=== PATIENT | female | born 1970 | race Caucasian/White ===

== ENCOUNTER 2020-08-21 18:34 | Emergency (ER) | payer SELFPAY ==
[~2020-08-21] VITALS: Ht 167.6 cm; Wt 69.5 kg
--- NOTE | 2020-08-21 19:25 | PHYS DOC ---
Past History Past Medical History: Anxiety, Bipolar, Bronchitis, Depression, Fibromyalgia, Hypertension, Seizure, Other Additional Past Medical Histor: Back issues (ALICE HILLMAN APRN) Past Surgical History: No Surgical History (ALICE HILLMAN APRN) Alcohol Use: None (ALICE HILLMAN APRN) Adult General Chief Complaint Chief Complaint: COUGH HPI HPI Patient is a 50-year-old female patient with history of bronchitis, current sm oker, hypertension, depression, anxiety, who presents to the ED today complaining of cough, bilateral ear pain, sore throat, symptoms have been going on since yesterday. Patient states the symptoms are similar to her chronic bronchitis but this time she feels it did not go away as quickly as. Denies any fever. She is requesting COVID-19 testing. (ALICE HILLMAN APRN) Review of Systems Review of Systems Constitutional: Denies fever or chills [] Eyes: Denies change in visual acuity, redness, or eye pain [] HENT: Reports bilateral ear pain, raw sensation in the throat. Denies nasal congestion Respiratory: Reports cough, denies shortness of breath [] Cardiovascular: No additional information not addressed in HPI [] GI: Denies abdominal pain, nausea, vomiting, bloody stools or diarrhea [] : Denies dysuria or hematuria [] Musculoskeletal: Denies back pain or joint pain [] Integument: Denies rash or skin lesions [] Neurologic: Denies headache, focal weakness or sensory changes [] All other systems were reviewed and found to be within normal limits, except as documented in this note. (ALICE HILLMAN APRN) Physical Exam Physical Exam Constitutional: Well developed, well nourished, no acute distress, non-toxic appearance. [] HENT: Normocephalic, atraumatic, bilateral external ears normal, oropharynx m oist, no oral exudates, nose normal. Bilateral ear canals with small amount of cerumen Eyes: PERRLA, EOMI, conjunctiva normal, no discharge. [] Neck: Normal range of motion, no tenderness, supple, no stridor. [] Cardiovascular:Heart rate regular rhythm, no murmur [] Lungs & Thorax: Bilateral breath sounds clear to auscultation [] Abdomen: Bowel sounds normal, soft, no tenderness, no masses, no pulsatile masses. [] Skin: Warm, dry, no erythema, no rash. [] Back: No tenderness, no CVA tenderness. [] Extremities: No tenderness, no cyanosis, no clubbing, ROM intact, no edema. [] Neurologic: Alert and oriented X 3, normal motor function, normal sensory function, no focal deficits noted. [] Psychologic: Affect normal, judgement normal, mood normal. [] (ALICE HILLMAN APRN) Current Patient Data Vital Signs Vital Signs Date Time Temp Pulse Resp B/P (MAP) Pulse Ox O2 Delivery O2 Flow Rate FiO2 08/21/20 19:07 98.5 75 16 149/101 (117) 97 Room Air (ALICE HILLMAN APRN) EKG EKG [] (ALICE HILLMAN APRN) Radiology/Procedures Radiology/Procedures []PROCEDURE: CHEST AP ONLY Exam: Chest one view INDICATION: Cough TECHNIQUE: Frontal view of the chest Comparisons: None FINDINGS: The cardiomediastinal silhouette and pulmonary vessels are within normal limits. The lung and pleural spaces are clear. IMPRESSION: No acute cardiopulmonary process. Electronically signed by: Tom Robbins MD (08/21/2020 8:59 PM) [facility] DICTATED AND SIGNED BY: TOM ROBBINS MD DATE: 08/21/202058 CC: PARVIZ ACUNA DO; JOSE TOM; ALICE HILLMAN APRN ~ (ALICE HILLMAN APRN) Heart Score Risk Factors: Risk Factors: DM, Current or recent (<one month) smoker, HTN, HLP, family history of CAD, obesity. Risk Scores: Risk Factors: DM, Current or recent (<one month) smoker, HTN, HLP, family history of CAD, obesity. (ALICE HILLMAN APRN) Course & Med Decision Making Course & Med Decision Making Pertinent Labs and Imaging studies reviewed. (See chart for details) This is a 50-year-old female patient with history of bronchitis current smoker presented to the ED today with multiple complaints including cough, bilateral ear pain, throat sensation in the throat, symptoms since yesterday. Also requesting COVID-19 testing Patient is a current smoker, recommended smoking cessation. O2 sats 97% to 98% on room air. Patient was discharged to home with albuterol inhaler, prednisone and encouraged to follow-up with a primary care doctor. Recommended self quarantine until she gets results for her Covid test (ALICE HILLMAN APRN) Dragon Disclaimer Dragon Disclaimer This electronic medical record was generated, in whole or in part, using a voice recognition dictation system. (ALICE HILLMAN APRN) Attending Co-Sign The patient was seen and interviewed as well as examined at the bedside. The chart was reviewed. The case was discussed. Agree with the plan of care. (PARVIZ ACUNA DO) Departure Departure: Impression: Primary Impression: Person under investigation for COVID-19 Additional Impressions: Smoking addiction Impacted cerumen of both ears Bronchitis Disposition: 01 DC HOME SELF CARE/HOMELESS Condition: STABLE Referrals: JOSE TOM (PCP) Follow-up in 1 to 2 weeks Patient Instructions: Acute Bronchitis, Smoking Cessation Additional Instructions: You were evaluated in the emergency room, you were tested for COVID-19, we will call you as soon as the results are available. In the meantime quarantine yourself. Consider smoking cessation. Maintain good antigen, push fluids. Take the prescribed medications as ordered. Scripts Prednisone (PREDNISONE) 50 Mg Tablet 1 TAB PO DAILY, #5 TAB Prov: ALICE HILLMAN APRN 08/21/20 Albuterol Sulfate (PROAIR HFA INHALER) 8.5 Gm Hfa.aer.ad 2 PUFF IH PRN Q4-6HRS PRN for wheezing for 21 Days, #1 INHALER 0 Refills Prov: ALICE HILLMAN APRN 08/21/20 Problem Qualifiers ALICE HILLMAN APRN Aug 21, 2020 19:25 PARVIZ ACUNA DO Aug 22, 2020 01:08
[2020-08-21 20:32] VITALS: BP 149/90
--- NOTE | 2020-08-21 21:02 | RAD ---
Exam: Chest one view INDICATION: Cough TECHNIQUE: Frontal view of the chest Comparisons: None FINDINGS: The cardiomediastinal silhouette and pulmonary vessels are within normal limits. The lung and pleural spaces are clear. IMPRESSION: No acute cardiopulmonary process. Electronically signed by: Tom Bauer MD (08/21/2020 8:59 PM) [facility]
[2020-08-21] MEDS ORDERED: PRED50TA PO (21:08)
[2020-08-21] MEDS ORDERED: ALBU2.5V8 IH (21:08)
--- NOTE | 2020-08-24 12:53 | NUR ---
IP: attempt to notify patient of COVIID result, unable to leave callback message. Will send letter.
== END 2020-08-21 21:16 | disposition home or self-care (01) ==
LOC: ER 18:34
DX: H61.23 Impacted cerumen, bilateral (principal); Z20.828 Contact with and (suspected) exposure to other viral communicable diseases; J40 Bronchitis, not specified as acute or chronic; R05 Cough; J02.9 Acute pharyngitis, unspecified; F41.9 Anxiety disorder, unspecified; F32.9 Major depressive disorder, single episode, unspecified; M79.7 Fibromyalgia; I10 Essential (primary) hypertension
CPT/HCPCS: 71045; 99284; C9803; U0003

== ENCOUNTER 2020-08-27 03:59 | Emergency (ER) | payer SELFPAY ==
[~2020-08-27] VITALS: Ht 167.6 cm; Wt 69.5 kg
[~2020-08-27 03:59] MED LIST: ALBU2.5V8 IH; PRED50TA PO
[2020-08-27] MEDS ORDERED: LISINOPRIL 10 MG TABLET PO ONE (04:30)
[2020-08-27] MEDS ORDERED: cloNIDine HCL 0.1 MG TABLET PO ONE (04:30)
--- NOTE | 2020-08-27 04:36 | PHYS DOC ---
Past History Past Medical History: Anxiety, Bipolar, Bronchitis, Depression, Fibromyalgia, Hypertension, Seizure, Other Additional Past Medical Histor: Back issues Past Surgical History: No Surgical History Alcohol Use: None General Adult EDM: Chief Complaint: HEADACHE HPI: HPI: 50-year-old female presents with headache and elevated blood pressure. The patient ran out of her lisinopril 40 mg prescription for her hypertension 4 days ago. She just transferred here from another place. Prescription prescription today but she was unable to pick it up. She has a generalized pressure s ensation headache since her blood pressure is elevated she just was not doing. She came to the emergency room. She has had hypertension for several years. She has a fairly history of strokes likely from hypertension, but no personal history of such. She denies nausea, vomiting, fever, or chills. She has no other complaints at this time. Review of Systems: Review of Systems: Constitutional: Denies fever or chills Eyes: Denies change in visual acuity HENT: Denies nasal congestion or sore throat Respiratory: Denies cough or shortness of breath Cardiovascular: Denies chest pain or edema GI: Denies abdominal pain, nausea, vomiting, bloody stools or diarrhea : Denies dysuria Musculoskeletal: Denies back pain or joint pain Integument: Denies rash Neurologic: Headache. Denies focal weakness or sensory changes Endocrine: Denies polyuria or polydipsia Lymphatic: Denies swollen glands Psychiatric: Denies depression or anxiety Current Medications: Current Meds: Current Medications Medications (Trade) Dose Ordered Sig/Addison Start Time Stop Time Status Last Admin Dose Admin Clonidine HCl (Catapres) 0.1 mg 1X ONCE 08/27/20 04:30 08/27/20 04:31 DC Lisinopril (Prinivil) 40 mg 1X ONCE 08/27/20 04:30 08/27/20 04:31 DC Allergies: Allergies: Allergies Coded Allergies Type Severity Reaction Last Updated Verified No Known Drug Allergies 08/27/20 No Physical Exam: PE: Constitutional: Well developed, well nourished, no acute distress, non-toxic appearance. [] HENT: Normocephalic, atraumatic, bilateral external ears normal, oropharynx moist, no oral exudates, nose normal. [] Eyes: PERRLA, EOMI, conjunctiva normal, no discharge. [] Neck: Normal range of motion, no tenderness, supple, no stridor. [] Cardiovascular: Heart rate regular rhythm, no murmur [] Lungs & Thorax: Bilateral breath sounds clear to auscultation [] Abdomen: Bowel sounds normal, soft, no tenderness, no masses, no pulsatile masses. [] Skin: Warm, dry, no erythema, no rash. [] Back: No tenderness, no CVA tenderness. [] Extremities: No tenderness, no cyanosis, no clubbing, ROM intact, no edema. [] Neurologic: Alert and oriented X 3, normal motor function, normal sensory function, no focal deficits noted. [] Psychologic: Affect normal, judgement normal, mood normal. [] Current Patient Data: Vital Signs: Vital Signs Date Time Temp Pulse Resp B/P (MAP) Pulse Ox O2 Delivery O2 Flow Rate FiO2 08/27/20 04:00 98.6 91 16 183/116 (138) 95 Room Air EKG: EKG: [] Radiology/Procedures: Radiology/Procedures: [] Heart Score: Risk Factors: Risk Factors: DM, Current or recent (<one month) smoker, HTN, HLP, family history of CAD, obesity. Risk Scores: Score 0 - 3: 2.5% MACE over next 6 weeks - Discharge Home Score 4 - 6: 20.3% MACE over next 6 weeks - Admit for Clinical Observation Score 7 - 10: 72.7% MACE over next 6 weeks - Early Invasive Strategies Course & Med Decision Making: Course & Med Decision Making Pertinent Labs and Imaging studies reviewed. (See chart for details) I will give the patient her 40 mg lisinopril dose in the emergency room as well as 0.1 of clonidine and 500 naproxen for her headache. This has improved her blood pressure and headache. She is stable for discharge at this time. [] Dragon Disclaimer: Dragon Disclaimer: This electronic medical record was generated, in whole or in part, using a voice recognition dictation system. Departure Departure: Impression: Primary Impression: Hypertension Additional Impression: Vascular headache Disposition: 01 DC HOME SELF CARE/HOMELESS Condition: IMPROVED Referrals: JOSE TOM (PCP) Patient Instructions: Hypertension, [id number] PARVIZ ACUNA DO Aug 27, 2020 04:36
[2020-08-27 04:49] VITALS: BP 174/101
[2020-08-27] MEDS ORDERED: NAPROXEN 500 MG TABLET PO ONE (05:00)
== END 2020-08-27 04:49 | disposition home or self-care (01) ==
LOC: ER 03:59
DX: I10 Essential (primary) hypertension (principal); G44.1 Vascular headache, not elsewhere classified; F31.9 Bipolar disorder, unspecified; F41.9 Anxiety disorder, unspecified; M79.7 Fibromyalgia
CPT/HCPCS: 99284; 99285